=== PATIENT | male | born 2005 | race Caucasian/White ===

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

== ENCOUNTER 2025-02-05 18:29 | Emergency (ER) | payer OTHER ==
[2025-02-05 19:17] VITALS: BP 127/70; PULSE 80; RESP 20; TEMP 98; BMI 25.0
== END 2025-02-05 21:01 | disposition home or self-care (01) ==
LOC: FER 18:29
DX: F41.9 Anxiety disorder, unspecified (principal); R06.02 Shortness of breath
CPT/HCPCS: 71045-TC-FY; 93005; 99284-25